=== PATIENT | female | born 1985 | race Two or more races ===

== ENCOUNTER 2021-03-14 14:57 | Emergency (ER) | payer BC ==
[~2021-03-14] VITALS: Ht 162.6 cm; Wt 77.3 kg
[2021-03-14] MEDS ORDERED: ACETAMINOPHEN 500 MG TABLET PO ONE (18:15)
[2021-03-14] MEDS ORDERED: POVIDONE-IODINE 10% 15 ML SOLUTION UD TP ONE (18:15)
[2021-03-14] MEDS ORDERED: PERTUSS(ACELL),DIPH,TET VAC/PF 0.5 ML SYRINGE IM. ONE (18:15)
[2021-03-14] MEDS ORDERED: BACITRACIN 0.9 GM PACKET OINTMENT TP ONE (18:15)
[2021-03-14] MEDS ORDERED: LIDOCAINE 1% 10 ML VIAL ID ONE (18:15)
[2021-03-14 20:00] VITALS: BP 132/86
== END 2021-03-14 20:10 | disposition home or self-care (01) ==
LOC: EMS 15:00
DX: S61.411A Laceration without foreign body of right hand, initial encounter (principal); W26.8XXA Contact with other sharp object(s), not elsewhere classified, initial encounter; Y93.G1 Activity, food preparation and clean up; Y92.89 Other specified places as the place of occurrence of the external cause; Y99.8 Other external cause status
CPT/HCPCS: 12001; 90471; 90715; 99283; J3490

== ENCOUNTER 2021-03-16 13:14 | Emergency (ER) | payer BC ==
[~2021-03-16] VITALS: Ht 162.6 cm; Wt 77.3 kg
[2021-03-16] MEDS ORDERED: BACITRACIN 0.9 GM PACKET OINTMENT TP ONE (14:30)
[2021-03-16 14:33] VITALS: BP 133/71
== END 2021-03-16 14:40 | disposition home or self-care (01) ==
LOC: EMS 13:14
DX: S61.411D Laceration without foreign body of right hand, subsequent encounter (principal); X58.XXXD Exposure to other specified factors, subsequent encounter
CPT/HCPCS: 99281; 99282; Z7502; Z7610